=== PATIENT | female | born 2000 | race Caucasian/White ===

== ENCOUNTER 2021-04-07 16:51 | Emergency (ER) | payer BC, SELFPAY ==
--- NOTE | ~2021-04-07 | XR_ITS ---
EXAMINATION: XR chest 2V DATE: 04/07/2021 17:35 INDICATION: Chest pain TECHNIQUE: PA and lateral views of the chest are obtained. COMPARISON: None available FINDINGS: The lungs are free of acute opacities. There is no pleural effusion or pneumothorax. The ca rdiomediastinal silhouette is normal. The visualized bones and soft tissues are unremarkable. IMPRESSION: 1. No acute cardiopulmonary abnormality. Reviewed, dictated and finalized at location A.
[2021-04-07 17:06] VITALS: BP 133/90; PULSE 75; RESP 17; TEMP 37.6; O2SAT 100
--- NOTE | 2021-04-07 17:23 | ECG_ITS ---
Measurements Intervals [place] Rate: 78 P: 77 TX: 124 QRS: 81 QRSD: 85 T: 53 QT: 368 QTc: 421 Interpretive Statements SINUS RHYTHM POSSIBLE LEFT ATRIAL ENLARGEMENT BORDERLINE ECG Electronically Signed On 04-07-2021 20:14:06 CDT by Germán Guevara D.O.
[2021-04-07 18:10] LABS: Basophils Absolute Auto 0.1 K/mm3 (0.0-0.1); Eosinophils Absolute Auto 0.1 K/mm3 (0-0.3); Hemoglobin 14.2 g/dL (12.0-15.0); Immature Granulocyte Absolute 0.03 K/mm3 (0.00-0.031); Immature Granulocyte Percent A 0.4 % (0-0.5); Lymphocytes Absolute Auto 2.57 K/mm3 (0.9-3.2); Lymphocytes Percent Auto 31.3 % (18.3-44.2); Mean Corpuscular HGB Conc 34.6 g/dl (32-36); Mean Corpuscular Hemoglobin 30.9 pg (26-34); Mean Corpuscular Volume 89.1 fl (80-100); Monocytes Absolute Auto 0.5 K/mm3 (0.1-0.6); Neutrophils Percent Auto 60.3 % (45.5-73.1); Platelet Count Result 227 k/mm3 (150-375); Red Cell Distribution Width 11.7 % (11.5-14.5); White Blood Count 8.2 K/mm3 (4.5-10.0)
[2021-04-07 18:21] LABS: Anion Gap 13 mmol/L (8-16); Blood Urea Nitrogen 20 mg/dL (7-17); Calcium 9.5 mg/dL (8.4-10.2); Carbon Dioxide 24 mmol/L (22-30); Chloride 103 mmol/L (98-107); Estimated CRCL calculation 95 ml/min; Estimated Glomerular Filt Rate > 60; Glucose 86 mg/dL (65-110); Potassium 3.9 mmol/L (3.4-5.0); Sodium 140 mmol/L (137-145)
[2021-04-07 18:22] LABS: INR 0.9; Partial Thromboplastin Time 27.5 SECONDS (22.3-36.8); Prothrombin Time 11.9 Seconds (11.1-14.7)
[2021-04-07 18:33] LABS: Troponin I < 0.012 ng/mL (0.000-0.034)
[2021-04-07] MEDS: ASPIRIN 81 MG CHEWABLE TABLET 324 MG PO (18:51)
--- NOTE | 2021-04-07 19:29 | ED.CHESTPAIN ---
HPI - Chest Pain General Chief Complaint: Chest Pain <BEKA Baptiste Last Filed: 04/07/21 20:04> Stated Complaint: CHEST PAIN <BEKA Baptiste Last Filed: 04/07/21 20:04> Time Seen by Provider: 04/07/21 18:57 <BEKA Baptiste Last Filed: 04/07/21 20:04> Source: patient <BEKA Baptiste Last Filed: 04/07/21 20:04> Mode of arrival: ambulatory <BEKA Baptiste Last Filed: 04/07/21 20:04> Limitations: no limitations <BEKA Baptiste Last Filed: 04/07/21 20:04> History of Present Illness HPI narrative: This is a 20 year old female that presents to the ER for chest pain present over the last week. Reports the pain is on the left side of her chest. It has been constant in nature. Worse with certain movements. She has not taken anything today for pain. No associated symptoms. Denies fever, cough, shortness of breath, lower extremity edema, recent travel or surgery, or exogenous estrogen use. <BEKA Baptiste Last Filed: 04/07/21 20:04> Related Data Home Medications: Home Medications Medication Instructions Recorded Confirmed No Home Medications 04/07/21 04/07/21 <BEKA Baptiste Last Filed: 04/07/21 20:04> Allergies/Adverse Reactions: Allergies Allergy/AdvReac Type Severity Reaction Status Date / Time No Known Allergies Allergy Verified 07/06/19 01:40 <BEKA Baptiste Last Filed: 04/07/21 20:04> Review of Systems Review of Systems: CONSTITUTIONAL: Denies fever CARDIOVASCULAR: Reports chest pain. Denies edema. RESPIRATORY: Denies cough or dyspnea. <BEKA Baptiste Last Filed: 04/07/21 20:04> All systems reviewed & are unremarkable except as noted in HPI and below <BEKA Baptiste Last Filed: 04/07/21 20:04> [facility] Past Medical History Medical History: Medical History (Updated 04/07/21 @ 20:04 by Kristi Eldridge PA-C) Healthy adolescent <Kristi Eldridge PA-C - Last Filed: 04/07/21 20:04> Surgical History Surgical History: Surgical History (Updated 07/06/19 @ 00:33 by Javier Cervantes) No history of previous surgery <Kristi Eldridge PA-C - Last Filed: 04/07/21 20:04> Social History Social History: Social History (Updated 04/07/21 @ 19:32 by Kristi Eldridge PA-C) Smoking status: Never smoker Gender identity (if verbalized by the patient): Female <Kristi Eldridge PA-C - Last Filed: 04/07/21 20:04> Exam Narrative: GENERAL: Well-appearing, well-nourished, and in no acute distress. HEAD: Normocephalic, atraumatic. EYES: EOMI. CHEST: Clear to auscultation. No respiratory distress. No wheezes rales or rhonchi HEART: Regular rate and rhythm. No murmur heard. Normal peripheral pulses. EXTREMITIES: Normal range of motion. No edema. SKIN: Warm, dry, no rash. NEURO: No focal deficits. Alert and oriented x3. PSYCH: Normal mood and affect <Kristi Eldridge PA-C - Last Filed: 04/07/21 20:04> Course [employer]GE[employer]/PA Physician Supervision I did not see this patient nor was the care plan discussed with me. I was available for evaluation and consultation, I agree with the documentation as above <Christopher Chapa MD - Last Filed: 04/07/21 20:33> Vital Signs Vital signs: Vital Signs Temperature 37.6 C H 04/07/21 17:06 Pulse Rate 75 04/07/21 17:06 Respiratory Rate 17 04/07/21 17:06 Blood Pressure 133/90 04/07/21 17:06 Pulse Oximetry 100 04/07/21 17:06 Temperature 37.6 C H 04/07/21 17:06 Pulse Rate 75 04/07/21 17:06 Respiratory Rate 17 04/07/21 17:06 Blood Pressure 133/90 04/07/21 17:06 Pulse Oximetry 100 04/07/21 17:06 <Kristi Eldridge PA-C - Last Filed: 04/07/21 20:04> Vital Signs Temperature 37.6 C H 04/07/21 17:06 Pulse Rate 75 04/07/21 17:06 Respiratory Rate 17 04/07/21 17:06 Blood Pressure 133/90 04/07/21 17:06 Pulse Oximetry 100 04/07/21 17:06 Temperature 3
== END 2021-04-07 20:16 | disposition home or self-care (01) ==
PROVIDERS: Emergency Medicine; Emergency Provider Emergency Medicine
DX: R07.9 Chest pain, unspecified (principal); R94.31 Abnormal electrocardiogram [ECG] [EKG]
CPT/HCPCS: 36415; 71046; 80048; 84484; 85025; 85610; 85730; 93005; 99284; A9270

== ENCOUNTER 2022-04-24 13:53 | Emergency (ER) | payer BC, SELFPAY ==
[2022-04-24] VITALS (11 sets, daily range): BP systolic 93–125; BP diastolic 52–79; PULSE 52–122; RESP 16–24; TEMP 37.3; O2SAT 98–100
--- NOTE | ~2022-04-24 | CT_ITS ---
EXAMINATION: CT abdomen pelvis w con DATE: 04/24/2022 15:57 INDICATION: Abdominal pain TECHNIQUE: Computed tomography (CT) of the abdomen and pelvis was performed with 100 mL Omnipaque-350 intravenous contrast. Automated exposure control and iterative reconstruction technique were employe d. The dose-length product was 265.83 mGy-cm. COMPARISON: None. FINDINGS: Lower thorax: Unremarkable Liver: Normal. Biliary/Gallbladder: Mild gallbladder distention, without wall thickening or inflammatory change. No bile duct dilation. Pancreas: No mass or duct dilation. Spleen: Normal. Adrenals:No mass. Kidneys: No mass, stone, or hydronephrosis. GI tract: Small hiatal hernia. Distal esophageal and gastric wall edema. No small or large bowel dila tion. Normal appendix. Mesentery/Peritoneum: No ascites, mass, or free air. Retroperitoneum: No mass. Pelvis: Pelvic organs are within normal limits. Soft Tissues: Soft tissues and body wall unremarkable. Bones: No acute osseous finding. IMPRESSION: Esophagitis/gastritis. Otherwise, no acute abdominopelvic process detected. Reviewed, dictated and finalized at location K.
[2022-04-24 15:01] LABS: Basophils Absolute Auto 0.1 K/mm3 (0.0-0.1); Basophils Percent Auto 0.8 % (0.2-1.2); Eosinophils Percent Auto 0.3 % (0-4.4); Hematocrit 38.3 % (37.0-47.0); Hemoglobin 13.6 g/dL (12.0-15.0); Immature Granulocyte Absolute 0.02 K/mm3 (0.00-0.031); Immature Granulocyte Percent A 0.3 % (0-0.5); Lymphocytes Absolute Auto 1.93 K/mm3 (0.9-3.2); Mean Corpuscular HGB Conc 35.5 g/dl (32-36); Mean Corpuscular Hemoglobin 30.7 pg (26-34); Mean Corpuscular Volume 86.5 fl (80-100); Mean Platelet Volume 10.3 fl (7.4-10.4); Monocytes Absolute Auto 0.6 K/mm3 (0.1-0.6); Neutrophils Absolute Auto 4.8 K/mm3 (1.3-6.7); Neutrophils Percent Auto 64.6 % (45.5-73.1); Platelet Count Result 261 k/mm3 (150-375); Red Blood Count 4.43 M/mm3 (4.2-5.4); Red Cell Distribution Width 11.9 % (11.5-14.5); White Blood Count 7.4 K/mm3 (4.5-10.0)
--- NOTE | 2022-04-24 15:04 | ED.ABDPAIN ---
HPI - Abdominal Pain General Chief Complaint: Abdominal Pain Stated Complaint: ABD Pain x2 days Time Seen by Provider: 04/24/22 15:04 Source: patient History of Present Illness HPI narrative: 21 years old white female came to the emergency room because of not feeling good, feeling depressed, 4 days ago patient went a bottle of have had alcohol, a line of cocaine, marijuana, went back home with severe nausea and vomiting, 1 day later On vomiting, hyperventilating with abdominal pain, patient started having Tylenol, ibuprofen without improvement yesterday at 4 PM received 2-1/2 g of mushroom, subsequently had severe anxiety tremors uncontrollable muscle movement, currently feeling shaking, restless, with intermittent suicidal thoughts. Related Data Home Medications Medication Instructions Recorded Confirmed escitalopram oxalate 5 mg tablet mg 04/24/22 Allergies Allergy/AdvReac Type Severity Reaction Status Date / Time No Known Allergies Allergy Verified 04/24/22 17:11 Review of Systems Review of Systems: All systems reviewed & are unremarkable except as noted in HPI and below PMFSH Past Medical History Medical History Healthy adolescent Surgical History Surgical History No history of previous surgery Social History Social History Smoking status: Never smoker Substance use type: crack/cocaine and hallucinogens Gender identity (if verbalized by the patient): Female Exam Narrative: General appearance: Well-developed, well-nourished, anxious, restless Skin: Normal color Head: Normocephalic, nontraumatic Eyes: Clear conjunctiva ENT: Oropharynx normal, ears normal, nose normal Neck: Supple, nontender Chest and respiratory: Airway patent, no respiratory distress, no accessory muscle use Heart: Regular rate/rhythm Abdomen: Soft, nontender, no organomegaly, quiet bowel sounds Vascular: Normal peripheral pulses, normal capillary refill. Musculoskeletal: Normal range of motion, nontender back Neurologic: Alert and oriented ?3, RAG CUTTING MACHINE TENDER is normal as tested, no gross motor deficit Course Reevaluation(s) Reevaluation #1: Patient is medically cleared for psych evaluation Currently feeling much better, more relaxed, denying any suicidal or homicidal ideation. Patient was evaluated by crisis, Patient feeling okay to go home and will stay in her sister house, my plan to give her a note off work for the next 3 days Date: 04/24/22 Time: 21:52 Vital Signs Vital signs: Vital Signs Temperature 37.3 C 04/24/22 14:23 Pulse Rate 122 H 04/24/22 14:23 Respiratory Rate 24 H 04/24/22 14:23 Blood Pressure 124/76 04/24/22 14:23 Pulse Oximetry 100 04/24/22 14:23 Oxygen Delivery Room Air 04/24/22 14:23 Temperature 37.3 C 04/24/22 14:23 Pulse Rate 64 04/24/22 20:44 Respiratory Rate 21 H 04/24/22 20:44 Blood Pressure 102/60 04/24/22 19:01 Pulse Oximetry 98 04/24/22 20:44 Oxygen Delivery Room Air 04/24/22 14:23 MDM - Abdominal Pain Lab Data Result diagrams: 04/24/22 14:38 04/24/22 14:38 Labs: Lab Results 04/24/22 04/24/22 04/24/22 Range/Units 14:37 14:38 14:38 WBC (4.5-10.0) K/mm3 RBC (4.2-5.4) M/mm3 Hgb (12.0-15.0) g/dL Hct (37.0-47.0) % MCV (80-100) fl MCH (26-34) pg MCHC (32-36) g/dl RDW (11.5-14.5) % Plt Count (150-375) k/mm3 MPV (7.4-10.4) fl Immature Gran % (Auto) (0-0.5) % Neut % (Auto) (45.5-73.1) % Lymph % (Auto) (18.3-44.2) % [place] % (
[2022-04-24 15:12] LABS: Alanine Aminotransferase 26 U/L (6-35); Albumin Level 5.3 g/dL (3.5-5.1); Alkaline Phosphatase 59 U/L (38-126); Anion Gap 15 mmol/L (8-16); Aspartate Amino Transferase 26 U/L (14-36); Bilirubin,Total 0.8 mg/dL (0.2-1.3); Blood Urea Nitrogen 9 mg/dL (7-17); Calcium 9.4 mg/dL (8.4-10.2); Carbon Dioxide 22 mmol/L (22-30); Chloride 106 mmol/L (98-107); Estimated CRCL calculation 84 ml/min; Estimated Glomerular Filt Rate > 60; Glucose 94 mg/dL (65-110); Potassium 3.4 mmol/L (3.4-5.0); Sodium 143 mmol/L (137-145)
[2022-04-24 15:15] LABS: Add Urine Microscopic? YES; Appearance Urine Clear (Clear); Bilirubin Urine Negative (Negative); Blood Urine Negative (Negative); Color Urine Yellow (Yellow); Ethanol < 10 mg/dL (<10); Glucose Urine UA Negative (Negative); Ketones Urine 2+ mg/dL (Negative); Leukocyte Esterase Ur Negative LEU/UL (Negative); Mucus Urine Rare /lpf; Nitrate Urine Negative (Negative); Protein Urine Negative (Negative); Specific Grav Ur 1.011 (1.001-1.035); Squamous Epithelial Cell Urine Few /hpf (Few); Urobilinogen Urine Negative mg/dL (<2.0); WBC Urine 0-3 /hpf
[2022-04-24 15:35] LABS: Lipase 175 U/L (23-300)
[2022-04-24 15:36] LABS: Amphetamine Screen Urine Negative (Negative); Barbiturate Screen Urine Negative (Negative); Benzodiazepines Screen Urine Negative (Negative); Cannabinoid Screen Urine Positive (Negative); Cocaine Screen Urine Negative (Negative); Methadone Screen Urine Negative (Negative); Opiate Screen Urine Negative (Negative); Phencyclidine Screen Urine Negative (Negative)
[2022-04-24] MEDS: METOCLOPRAMIDE HCL INJ 10 MG/2 ML VIAL IV PUSH (16:04)
[2022-04-24] MEDS: diphenhydrAMINE HCl INJ 50 MG/ML VIAL IV PUSH (16:04)
[2022-04-24] MEDS: SODIUM CHLORIDE 0.9% IV 1,000 ML 999 ML IV CONT (16:06)
[2022-04-24] MEDS: LORazepam INJ (*CRX) 2 MG/ML VIAL 1 MG IV PUSH (16:06)
--- NOTE | 2022-04-24 17:07 | PC.NURSE ---
Pt sister Pattie: [phone]
--- NOTE | 2022-04-24 19:20 | PC.NURSE ---
Assumed care of pt at this time, report taken from jv BLACKWELL
--- NOTE | 2022-04-24 19:57 | PC.NURSE ---
Crisis reports will send ms access database developer out to evaluate pt.
[2022-04-24 20:04] LABS: SARS-CoV-2 RNA PCR Negative
== END 2022-04-24 22:02 | disposition home or self-care (01) ==
PROVIDERS: Emergency Medicine; Emergency Provider Emergency Medicine
DX: F32.9 Major depressive disorder, single episode, unspecified (principal); F19.10 Other psychoactive substance abuse, uncomplicated; Z20.822 Contact with and (suspected) exposure to COVID-19; K29.70 Gastritis, unspecified, without bleeding; K20.90 Esophagitis, unspecified without bleeding
CPT/HCPCS: 36415; 74177; 80053; 80307; 81001; 81025; 83690; 84443; 85025; 96361; 96374; 96375; 99285; C9803; J1200; J2060; J2765; J7030; Q9967; U0003; U0005

== ENCOUNTER 2022-10-02 14:10 | Emergency (ER) | payer BC, SELFPAY ==
[2022-10-02 14:25] VITALS: BP 112/62; PULSE 97; RESP 18; TEMP 36.9; O2SAT 100
[2022-10-02 14:27] VITALS: BP 112/62; PULSE 97; RESP 18; TEMP 36.9; O2SAT 100
--- NOTE | 2022-10-02 14:31 | ED.FEMALEGU ---
HPI - Female Genitourinary General Chief complaint: Urogenital-Female Stated complaint: Vomiting,Diarrhea,Possible UTI Time Seen by Provider: 10/02/22 14:31 Source: patient Mode of arrival: ambulatory Limitations: no limitations History of Present Illness HPI Narrative: Patient is a 22-year-old female that presents with nausea, vomiting, diarrhea since yesterday. Patient now has body aches from vomiting. Is also having intermittent in urinary urgency, frequency, burning but states has been going on for 2 months. Patient went to the emergency department for similar symptoms and had bladder CT with contrast. States she did not get results. Patient is not concerned for or STDs at this time. Patient denies any blood in urine but states that has been dark in color. Denies any fever, chills, congestion,cough, ear pain, sore throat. States she was under a boil order and did not boil her water before drinking it MD elicited complaint: dysuria Related Data Home Medications Medication Instructions Recorded Confirmed escitalopram oxalate 5 mg tablet 10 mg PO DAILY 04/24/22 10/02/22 Allergies Allergy/AdvReac Type Severity Reaction Status Date / Time No Known Allergies Allergy Verified 10/02/22 14:26 Review of Systems Review of Systems: All systems reviewed & are unremarkable except as noted in HPI and below Constitutional: Constitutional: Denies chills, Denies fever(s), Denies headache(s), Denies malaise and Denies weakness Eyes: Eyes: Denies change in vision, Denies eye discharge and Denies irritation ENT: Denies otalgia, Denies headache(s), Denies nasal congestion, Denies nasal discharge, Denies sinus pain and Denies sore throat Cardiovascular: Cardiovascular: Denies chest pain, Denies edema, Denies palpitations and Denies dyspnea Respiratory: Respiratory: Denies cough and Denies dyspnea Gastrointestinal: Gastrointestinal: Denies abdominal pain, Denies diarrhea, Denies nausea and Denies vomiting Genitourinary: Genitourinary: Denies hematuria, Reports urinary frequency, Reports dysuria and Denies flank pain Musculoskeletal: Musculoskeletal: Denies back pain and Denies numbness Integumentary/Breasts: Skin/Breast: Denies pruritus and Denies rash Neurologic: Denies headache(s), Denies numbness and Denies weakness Psychiatric: Psychiatric: Reports no additional psychiatric complaints Endocrine: Endocrine: Denies palpitations PMFSH Past Medical History Medical History Healthy adolescent Surgical History Surgical History No history of previous surgery Social History Social History Smoking status: Never smoker Substance use type: crack/cocaine and hallucinogens Gender identity (if verbalized by the patient): Female Comments At time of signature, agree with nursing past medical, surgical, social and family history. There is no relevant family history pertinent to the presenting complaint. Exam Const: General: cooperative, healthy appearing, comfortable, no acute distress and well nourished Nutritional Appearance: well nourished Orientation/consciousness: patient oriented x3 HENMT: Head: normocephalic and atraumatic Ears: external ears normal Face/Nose/Sinus: Normal external nose present, Normal nares present and normal facial exam Face and sinus: normal facial exam Eyes: General: appearance normal, both eyes and all related structures Pupils: Equal, round and reactive pupils present EOM: EOMs intact bilaterally Neck: Neck: normal visual inspection, full ROM and supple Chest: Chest palpation & inspection: normal inspection of the chest Resp: Effort & Inspection: normal respiratory effort and able to speak in complete sentences Cardio: Rate: regular rate Rhythm: regular rhythm GI: Inspection: normal to inspection GI Palp: No abdom
== END 2022-10-02 15:00 | disposition home or self-care (01) ==
PROVIDERS: Emergency Provider Nurse Practitioner Family
DX: R11.2 Nausea with vomiting, unspecified (principal); R82.998 Other abnormal findings in urine
CPT/HCPCS: 81003; 87086; 99213; G0463